=== PATIENT | male | born 1990 | race Caucasian/White ===

== ENCOUNTER 2017-08-16 14:35 | Emergency (ER) | payer OTHER ==
[2017-08-16 14:46] VITALS: BP 127/68; PULSE 59; TEMP 98.6; BMI 39.1
--- NOTE | 2017-08-16 15:14 | PDOC ---
History of Present Illness - General Chief Complaint: Rash Stated Complaint: RASH Time Seen by Provider: 08/16/17 14:54 History Source: Patient Exam Limitations: No Limitations - History of Present Illness Initial Comments: 08/16/17 15:19 Patient came for second opinion about rash to his neck. went to the [facility] 3[facility]4 days ago where they used a razor, [facility] nicked him and since that time has had this rash to his neck. Denies fever, denies any purulent drainage, states his itching not painful. was seen by his PMD 3 days ago who considered rash to be the appearance of a tinea infection and prescribed ketoconazole cream for that area. Has used twice a day as instructed but states the area surrounding the lesion has become erythematous and very very itchy. Is uncertain but thinks may have a reaction to the cream. Patient has multiple environmental ALLERGIES and food ALLERGIES. Timing/Duration: reports: other (3 days ), getting worse Severity: Yes: mild Location: reports: face (neck) Modifying Factors: improves with: scratching Associated Symptoms: reports: flushing, rash Past History - Travel Traveled outside of the country in the last 30 days: No Close contact w/someone who was outside of country & ill: No - Past Medical History Allergies/Adverse Reactions: Allergies Allergy/AdvReac Type Severity Reaction Status Date / Time peanut Allergy Verified 08/16/17 14:42 shellfish derived Allergy Verified 08/16/17 14:42 Home Medications: Ambulatory Orders Omeprazole [Prilosec (RX)] 40 mg PO DAILY 06/15/13 Fluconazole 150 mg PO ONCE #1 tablet 08/16/17 COPD: No GI Disorders: Yes (ACID REFLUX) - Suicide/Smoking/Psychosocial Hx Smoking History: Never smoked Number of Cigarettes Smoked Daily: 0 Hx Alcohol Use: No Review of Systems - Review of Systems Able to Perform ROS?: Yes Is the patient limited Guatemalan proficient: Yes Constitutional: Yes: Symptoms Reported, See HPI. No: Chills, Fever HEENTM: Yes: See HPI. No: Symptoms Reported, Nose Congestion, Throat Swelling Respiratory: Yes: See HPI. No: Symptoms reported, Cough, Wheezing Musculoskeletal: No: Symptoms Reported Integumentary: Yes: Symptoms Reported, See HPI, Pruritus (to area ~ 4cm2 to neck ), Rash *Physical Exam - Vital Signs Last Vital Signs Temp Pulse Resp BP Pulse Ox 98.6 F 59 L 17 127/68 96 08/16/17 14:43 08/16/17 14:43 08/16/17 14:43 08/16/17 14:43 08/16/17 14:43 - Physical Exam General Appearance: Yes: Appropriately Dressed HEENT: positive: HEENA, Normal ENT Inspection, TMs Normal, Pharynx Normal Neck: positive: Supple. negative: Tender Respiratory/Chest: positive: Lungs Clear, Normal Breath Sounds Extremity: positive: Normal Capillary Refill, Normal Range of Motion Integumentary: positive: Dry, Warm, Rash (Central lesion that's pale proximally 1 cm with circumferential erythematous and pruritic lesion that approximate 6 cm without vesicles, hives, wheals, or other raised lesions. Has some excoriation from pruritic nature. 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 We'll treat with one dose of Diflucan, and encourage patient to avoid itching and no other creams or lotions. If not resolved or appears worsened and cellulitic in nature instructed to return to this emergency Department for a change to treatment for bacterial infection/ cellulitis. *DC/Admit/Observation/Transfer Diagnosis at time of Disposition: Tinea barbae - Discharge Dispostion Disposition: HOME Condition at time of disposition: Stable Admit: No - Prescriptions Prescriptions: Fluconazole 150 mg PO ONCE #1 tablet - Referrals Referrals: ON STAFF,NOT [Primary Care Provider] - - Patient Instructions Printed Discharge Instructions: DI for Tinea Barbae Additional Instructions: Rest, keep cool and dry- avoid strenuous activity or hot /humid environments Less hot showers, no abrasive soaps May use heavy creams like Eucerin or Cetaphil to keep skin moist May apply Aveeno, calamine lotion, [id number] hydrocortisone creams as needed for symptoms May use Benadryl at night for antihistamine, Zyrtec/ Ida or Claritin for daytime antihistamine use to help with itching May use [id number] tinea / fungal cream on all areas except face Try to identify cause for rash and avoid exposures 1 tablet of Diflucan fopr tinea treatment Followup with PMD in one week if no resolution Make appointment with [facility] for evaluation when possible - Post Discharge Activity
== END 2017-08-16 15:24 | disposition home or self-care (01) ==
LOC: JERFT 14:35
DX: B35.0 Tinea barbae and tinea capitis (principal)
CPT/HCPCS: 99281-25

== ENCOUNTER 2018-04-21 14:23 | Emergency (ER) | payer OTHER ==
[2018-04-21] MEDS ORDERED: SODIUM CHLORIDE 1,000 ML IV STA (14:43)
[2018-04-21] MEDS ORDERED: ONDANSETRON *ODT* 4 MG TABLET SL ONE (14:43)
[2018-04-21 14:45] VITALS: BP 106/87; PULSE 77; TEMP 98; BMI 40.0
--- NOTE | 2018-04-21 14:45 | PDOC ---
Rapid Medical Evaluation Chief Complaint: Vomiting/Diarrhea Time Seen by Provider: 04/21/18 14:44 Medical Evaluation: Allergies Allergy/AdvReac Type Severity Reaction Status Date / Time peanut Allergy Verified 08/16/17 14:42 shellfish derived Allergy Verified 08/16/17 14:42 04/21/18 14:44 I have performed a brief in-person evaluation of this patient. The patient presents with a chief complaint of: nausea, vomiting and diarrhea s/ p eating left over food yesterday from a [facility] 2 days ago Pertinent physical exam findings: A&O x 3. mp acute distress I have ordered the following: CBC,CMP, zofran, IV FLUID The patient will proceed to the ED for further evaluation Discharge Disposition - Diagnosis Diarrhea Qualifiers: Diarrhea type: unspecified type Qualified Code(s): R19.7 - Diarrhea, unspecified - Discharge Dispostion Condition at time of disposition: Stable - Referrals - Patient Instructions - Post Discharge Activity
[2018-04-21] MEDS ORDERED: ONDANSETRON *ODT* 4 MG TABLET ONE (14:49)
--- NOTE | 2018-04-21 15:12 | PDOC ---
History of Present Illness - General Chief Complaint: Vomiting/Diarrhea Stated Complaint: Vomiting/Diarrhea Time Seen by Provider: 04/21/18 14:44 - History of Present Illness Initial Comments: 04/21/18 15:05 Mr. Giron is a 27 yo male w/ pmh of Eosinophilic Esophagitis who presents for evaluation of 1 day history of N/V. Patient is accompanied by who has had similar symptoms plus fever for 2-3 days. Patient reports his symptoms started today and that he has had 5+ episodes of both vomiting and diarrhea. Patient further reports he had some midline abdominal pain with his vomiting that resolved before presentation. The patient denies chest pain, shortness of breath, headache and dizziness. Denies fever, chills, and constipation. Denies dysuria, frequency, urgency and hematuria. Past History - Past Medical History Allergies/Adverse Reactions: Allergies Allergy/AdvReac Type Severity Reaction Status Date / Time peanut Allergy Verified 08/16/17 14:42 shellfish derived Allergy Verified 08/16/17 14:42 Home Medications: Ambulatory Orders Omeprazole [Prilosec (RX)] 40 mg PO DAILY 06/15/13 Fluconazole 150 mg PO ONCE #1 tablet 08/16/17 Ondansetron [Zofran Odt -] 4 mg SL TID PRN #15 od.tablet 04/21/18 COPD: No GI Disorders: Yes (ACID REFLUX) Other medical history: EOSINAPHIL ESOPHAGITIS - Immunization History Immunization Up to Date: No - Suicide/Smoking/Psychosocial Hx Smoking History: Never smoked Have you smoked in the past 12 months: No Number of Cigarettes Smoked Daily: 0 Hx Alcohol Use: No Drug/Substance Use Hx: No Review of Systems - Review of Systems Comments:: 04/21/18 15:17 GENERAL/CONSTITUTIONAL: No fever or chills. No weakness. HEAD, EYES, EARS, NOSE AND THROAT: No change in vision. No ear pain or discharge. No sore throat. CARDIOVASCULAR: No chest pain or shortness of breath RESPIRATORY: No cough, wheezing, or hemoptysis. GASTROINTESTINAL: +N/V/D as described. No constipation. GENITOURINARY: No dysuria, frequency, or change in urination. MUSCULOSKELETAL: No joint or muscle swelling or pain. No neck or back pain. SKIN: No rash NEUROLOGIC: No headache, vertigo, loss of consciousness, or change in strength/ sensation. ENDOCRINE: No increased thirst. No abnormal weight change HEMATOLOGIC/LYMPHATIC: No anemia, easy bleeding, or history of blood clots. ALLERGIC/IMMUNOLOGIC: No hives or skin allergy. *Physical Exam - Vital Signs Last Vital Signs Temp Pulse Resp BP Pulse Ox 98.0 F 77 18 106/87 100 04/21/18 14:43 04/21/18 14:43 04/21/18 14:43 04/21/18 14:43 04/21/18 14:43 - Physical Exam Comments: 04/21/18 15:17 GENERAL: Awake, alert, and fully oriented, in no acute distress HEAD: No signs of trauma, normocephalic, atraumatic EYES: PERRLA, EOMI, sclera anicteric, conjunctiva clear ENT: Auricles normal inspection, hearing grossly normal, nares patent, oropharynx clear without exudates. Moist mucosa NECK: Normal ROM, supple, no lymphadenopathy, JVD, or masses LUNGS: No distress, speaks full sentences, clear to auscultation bilaterally HEART: Regular rate and rhythm, normal S1 and S2, no murmurs, rubs or gallops, peripheral pulses normal and equal bilaterally. ABDOMEN: Soft, nontender, normoactive bowel sounds. No guarding, no rebound. No masses EXTREMITIES: Normal inspection, Normal range of motion, no edema. No clubbing or cyanosis. NEUROLOGICAL: Cranial nerves II through XII grossly intact. Normal speech, normal gait, no focal sensorimotor deficits SKIN: Warm, Dry, normal turgor, no rashes or lesions noted. Moderate Sedation - Procedure Monitoring Vital Signs: Procedure Monitoring Vital Signs Temperature 98.0 F 04/21/18 14:43 Pulse Rate 77 04/21/18 14:43 Respiratory Rate 18 04/21/18 14:43 Blood Pressure 106/87 04/21/18 14:43 O2 Sat by Pulse Oximetry (%) 100 04/21/18 14:43 ED Treatment Course - LABORATORY CBC & Chemistry Diagram: 04/21/18 15:01 04/21/18 15:19 - Medications Given in the ED: ED Medications Discontinued Medications Generic Name Dose Route Start Last Admin Trade Name Freq PRN Reason Stop Dose Admin Ondansetron HCl 4 mg 04/21/18 14:43 04/21/18 14:53 Zofran Odt - SL 04/21/18 14:44 4 mg ONCE ONE Administration Medical Decision Making - Medical Decision Making 04/21/18 16:42 Mr. Giron is a 27 yo male w/ pmh as described who presents for evaluation of symptoms c/w viral illness. No concerning findings at this time. Patient reporting relief from symptoms w/ fluids and zofran/pepcid. Discharging to home w/ zofran for symptomatic relief. Laboratory Results - last 24 hr 04/21/18 04/21/18 15:01 15:19 WBC 12.5 H RBC 5.17 Hgb 15.6 Hct 44.5 MCV 85.9 MCH 30.1 MCHC 35.0 RDW 12.5 Plt Count 290 MPV 9.2 Absolute Neuts (auto) 10.6 H Neutrophils % 85.2 H D Lymphocytes % 9.0 D Monocytes % 4.7 Eosinophils % 1.0 D Basophils % 0.1 Nucleated RBC % 0 Sodium 140 Potassium 3.9 Chloride 107 Carbon Dioxide 23 Anion Gap 10 BUN 12 Creatinine 0.8 Creat Clearance w eGFR > 60 Random Glucose 83 Calcium 8.3 L Total Bilirubin 0.8 AST 21 ALT 27 Alkaline Phosphatase 89 Total Protein 7.4 Albumin 4.0 *DC/Admit/Observation/Transfer Diagnosis at time of Disposition: Diarrhea Qualifiers: Diarrhea type: unspecified type Qualified Code(s): R19.7 - Diarrhea, unspecified - Discharge Dispostion Disposition: HOME Condition at time of disposition: Stable - Referrals - Patient Instructions Printed Discharge Instructions: DI for Diarrhea and Traveler's Diarrhea -- Adult, DI for Vomiting -- Adult Additional Instructions: You were evaluated today in the ER for your vomiting and diarrhea. No concerning findings were found at this time. A prescription was sent to your ER for anti-nausea medication. Take all medications as proscribed. Follow-up with primary care provider later this week for further evaluation. Return to ER if any fever, chills, pain, or other concerning symptoms. - Post Discharge Activity
[2018-04-21] MEDS ORDERED: FAMOTIDINE 20 MG/50 ML IVPB 20 MG/50 ML MG IVPB ONE ×2 (15:15→15:38)
--- NOTE | 2018-04-21 15:48 | PDOC ---
Attending Attestation - Resident Resident Name: Pedrito Che - ED Attending Attestation I have performed the following: I have examined & evaluated the patient, The case was reviewed & discussed with the resident, I agree w/resident's findings & plan - HPI HPI: 04/21/18 15:47 Healthy 27-year-old male with no severe past medical history presents with onset today of nausea/vomiting/diarrhea/epigastric burning, no fevers or chills. is also a patient here with same illness for 2 days, they ate some restaurant food couple of nights ago, otherwise no recent travel or antibiotics or known sick contacts. Patient has no history of recurring GI illnesses. - Physicial Exam PE: 04/21/18 15:47 Vital signs normal Well-appearing and ambulating No jaundice or pallor Moist mucosa Abdomen is soft/nontender/nondistended, slight epigastric discomfort without guarding or rebound. - Medical Decision Making 04/21/18 15:48 27-year-old male with likely gastroenteritis-type illness, seems more viral than food/toxin mediated. No peritoneal findings on examination, vital signs are normal. Labs IV fluids, antacid, antiemetics Reassess, disposition accordingly
[2018-04-21 15:52] LABS: BASO % 0.1 % (0-2.0); HEMATOCRIT 44.5 % (35.4-49); HEMOGLOBIN 15.6 GM/dL (11.7-16.9); MCH 30.1 pg (25.7-33.7); MEAN CELL VOLUME 85.9 fl (80-96); MEAN PLT VOLUME 9.2 fl (7.5-11.1); MONO % 4.7 % (3.8-10.2); NEUT % 85.2 % (42.8-82.8); PLATELET COUNT 290 K/MM3 (134-434); RBC 5.17 M/mm3 (4.00-5.60); RDW 12.5 % (11.9-15.9); WHITE BLOOD COUNT 12.5 K/mm3 (4.0-10.0)
[2018-04-21 16:30] LABS: ALK PHOS 89 U/L (45-117); ANION GAP 10 MMOL/L (8-16); BILIRUBIN,TOTAL 0.8 mg/dL (0.2-1); BLOOD UREA NITROGEN 12 mg/dL (7-18); CALCIUM 8.3 mg/dL (8.5-10.1); CHLORIDE 107 mmol/L (98-107); CO2 23 mmol/L (21-32); CREATININE 0.8 mg/dL (0.55-1.3); GLUCOSE,RANDOM 83 mg/dL (74-106); POTASSIUM 3.9 mmol/L (3.5-5.1); SGOT/AST 21 U/L (15-37); SGPT/ALT 27 U/L (13-61); SODIUM 140 mmol/L (136-145); TOT PROT 7.4 g/dl (6.4-8.2)
== END 2018-04-21 17:42 | disposition home or self-care (01) ==
LOC: JER 14:23
PROC: 3E033GC Introduction of Other Therapeutic Substance into Peripheral Vein, Percutaneous Approach (ICD-10-PCS; principal; 2018-04-21)
PROC: 3E0337Z Introduction of Electrolytic and Water Balance Substance into Peripheral Vein, Percutaneous Approach (ICD-10-PCS; 2018-04-21)
DX: R19.7 Diarrhea, unspecified (principal)
CPT/HCPCS: 36415; 80053; 85025; 99283-25; J7030; Q0162

== ENCOUNTER 2018-06-01 03:16 | Emergency (ER) | payer OTHER ==
[2018-06-01 03:32] VITALS: BP 124/73; PULSE 57; TEMP 98.8; BMI 39.4
--- NOTE | 2018-06-01 06:08 | PDOC ---
History of Present Illness - General Chief Complaint: Laceration Stated Complaint: L HAND LAC Time Seen by Provider: 06/01/18 05:43 History Source: Patient Exam Limitations: No Limitations - History of Present Illness Initial Comments: 06/01/18 06:03 Patient is a 27 year male with h/o is seen like esophagitis, deviated septum repair, and plating of laceration to the left palm 1 day. Patient states that he was closing the window in his basement yesterday when his hand went through a window and had a shard of glass went in hand. States that he washed the wound and took the shard out. However tonight while at work about 10:00pm had some tingling in the hand and fingers that radiated up his arm. He got concerned and so came to the emergency room for evaluation. Tetanus is UTD. PMD: Dr. Joseph PMHX: as above SOCHx: neg etoh, drug, cig ALL: NKDA GENERAL/CONSTITUTIONAL: [No fever or chills. No weakness. No weight change.] HEAD, EYES, EARS, NOSE AND THROAT: [No change in vision. No ear pain or discharge. No sore throat.] CARDIOVASCULAR: [No chest pain or shortness of breath.] RESPIRATORY: [No cough, wheezing, or hemoptysis.] GASTROINTESTINAL: [No nausea, vomiting, diarrhea or constipation. No rectal bleeding.] GENITOURINARY: [No dysuria, frequency, or change in urination.] MUSCULOSKELETAL: [No joint or muscle swelling or pain. No neck or back pain.] SKIN AND BREASTS: [No rash or easy bruising.] NEUROLOGIC: [No headache, vertigo, loss of consciousness, or loss of sensation.] PSYCHIATRIC: [No depression or anxiety.] ENDOCRINE: [No increased thirst. No abnormal weight change.] HEMATOLOGIC/LYMPHATIC: [No anemia, easy bleeding, or history of blood clots.] ALLERGIC/IMMUNOLOGIC: [No hives or skin allergy. No latex allergy.] GENERAL: HEAD: [Normal with no signs of trauma.] EYES: [Pupils equal, round and reactive to light, extraocular movements intact, sclera anicteric, conjunctiva clear.] ENT: [Ears normal, nares patent, oropharynx clear without exudates. Moist mucous membranes.] NECK: [Normal range of motion, supple without lymphadenopathy, JVD, or masses.] LUNGS: [Breath sounds equal, clear to auscultation bilaterally. No wheezes, and no crackles.] HEART: [Regular rate and rhythm, normal S1 and S2 without murmur, rub.] ABDOMEN: [Soft, nontender, normoactive bowel sounds. No guarding, no rebound. No masses.] EXTREMITIES: [Normal range of motion, no edema. No clubbing or cyanosis. No cords, erythema, or tenderness.] NEUROLOGICAL: [Cranial nerves II through XII grossly intact. Normal speech, normal gait.] PSYCH: [Normal mood, normal affect.] SKIN: 1.5cm laceration to over distal 1/3 of the 3rd MC, or Warm, Dry, (-) eythema, normal turgor, no rashes or lesions noted.] Past History - Past Medical History Allergies/Adverse Reactions: Allergies Allergy/AdvReac Type Severity Reaction Status Date / Time No Known Drug Allergies Allergy Verified 06/01/18 04:17 peanut Allergy Verified 06/01/18 04:17 shellfish derived Allergy Verified 06/01/18 04:17 Home Medications: Ambulatory Orders Clindamycin [Cleocin -] 300 mg PO Q6HPO #28 capsule 06/01/18 COPD: No GI Disorders: Yes (ACID REFLUX) - Immunization History Immunization Up to Date: No - Suicide/Smoking/Psychosocial Hx Smoking History: Never smoked Have you smoked in the past 12 months: No Number of Cigarettes Smoked Daily: 0 Information on smoking cessation initiated: No Hx Alcohol Use: No Drug/Substance Use Hx: No *Physical Exam - Vital Signs Last Vital Signs Temp Pulse Resp BP Pulse Ox 98.8 F 57 L 20 124/73 99 06/01/18 03:28 06/01/18 03:28 06/01/18 03:28 06/01/18 03:28 06/01/18 03:28 Moderate Sedation - Procedure Monitoring Vital Signs: Procedure Monitoring Vital Signs Temperature 98.8 F 06/01/18 03:28 Pulse Rate 57 L 06/01/18 03:28 Respiratory Rate 20 06/01/18 03:28 Blood Pressure 124/73 06/01/18 03:28 O2 Sat by Pulse Oximetry (%) 99 06/01/18 03:28 ED Treatment Course - RADIOLOGY Radiology Studies Ordered: Category Date Time Status HAND- LEFT [RAD] Stat Radiology 06/01/18 05:55 Ordered Medical Decision Making - Medical Decision Making 06/01/18 06:03 Patient is a 27 year male with h/o is seen like esophagitis, deviated septum repair, and plating of laceration to the left palm 1 day. Patient states that he was closing the window in his basement yesterday when his hand went through a window and had a shard of glass went in hand. States that he washed the wound and took the shard out. However tonight while at work about 10:00pm had some tingling in the hand and fingers that radiated up his arm. He got concerned and so came to the emergency room for evaluation. Tetanus is UTD. Symptoms consistent with puncture wound Hand xray not FB noted will treat with clindamycin I discussed the physical exam findings, ancillary test results and final diagnoses with the patient. I answered all of the patient's questions. The patient was satisfied with the care received and felt comfortable with the discharge plan and treatment plan. The Patient agrees to follow up with the primary care physician within 24-72 hours. *DC/Admit/Observation/Transfer Diagnosis at time of Disposition: Puncture wound Laceration of hand Qualifiers: Encounter type: initial encounter Foreign body presence: without foreign body Laterality: left Qualified Code(s): S61.412A - Laceration without foreign body of left hand, initial encounter - Discharge Dispostion Disposition: HOME Condition at time of disposition: Stable - Referrals Referrals: Dar Li MD [Staff Physician] - - Patient Instructions Printed Discharge Instructions: DI for Puncture Wound - Post Discharge Activity Forms/Work/School Notes: Back to Work
[2018-06-01] MEDS ORDERED: CLINDAMYCIN HCL 300 MG CAPSULE PO ONE (06:37)
[2018-06-01] MEDS ORDERED: CLINDAMYCIN HCL 150 MG CAPSULE (FP) ONE (06:40)
== END 2018-06-01 07:24 | disposition home or self-care (01) ==
LOC: JER 03:16
DX: S61.432A Puncture wound without foreign body of left hand, initial encounter (principal); S61.412A Laceration without foreign body of left hand, initial encounter; W25.XXXA Contact with sharp glass, initial encounter; Y93.89 Activity, other specified; Y92.018 Other place in single-family (private) house as the place of occurrence of the external cause; Y99.8 Other external cause status
CPT/HCPCS: 73130-TC-LT-FY; 99281-25

== ENCOUNTER 2018-08-20 12:34 | Day surgery (SDC) | payer OTHER ==
[2018-08-19 14:23] VITALS: BMI 39.8
--- NOTE | 2018-08-20 14:21 | HP ---
History & Physical Update - History History: No Change - Physical Physical: No Change - Assessment Assessment: No Change - Plan Plan: No Change
[2018-08-20] MEDS ORDERED: ACETAMINOPHEN 1000 MG/100 ML VIAL (NON FORMULARY) IVPB ONE (14:22)
[2018-08-20] MEDS ORDERED: DEXTROSE 5%-0.45% SALINE 1,000 ML IV SCH (14:30)
[2018-08-20] MEDS ORDERED: IBUPROFEN 800 MG/8 ML IJ IVPB SCH (14:30)
[2018-08-20] MEDS ORDERED: MIDAZOLAM HCL 2 MG/2 ML SINGLE DOSE VIAL ONE (14:49)
[2018-08-20] MEDS ORDERED: ONDANSETRON 4 MG/2 ML VIAL ONE (14:57)
[2018-08-20] MEDS ORDERED: DEXAMETHASONE SOD PHOSPHATE 4 MG/1 ML VIAL ONE (14:57)
[2018-08-20] MEDS ORDERED: PROPOFOL 20 ML ONE ×2 (15:00)
[2018-08-20] MEDS ORDERED: LIDOCAINE HCL/PF 2% SDV 5ML VIAL ONE (15:01)
[2018-08-20] MEDS ORDERED: SUCCINYLCHOLINE CHLORIDE 200 MG/10 ML VIAL ONE (15:02)
[2018-08-20] MEDS ORDERED: ceFAZolin SODIUM 1 GM VIAL IVPB ONE (15:09)
[2018-08-20] MEDS ORDERED: ceFAZolin SODIUM 1 GM VIAL ONE (15:09)
[2018-08-20] MEDS ORDERED: LIDOCAINE HCL 1%, 10 MG/ML (20ML VIAL) ONE (15:15)
[2018-08-20] MEDS ORDERED: LIDOCAINE HCL 1%, 10 MG/ML (50 mL VIAL) IJ ONE (15:17)
[2018-08-20] MEDS ORDERED: BACITRACIN 15 GM TUBE TOPICAL OINTMENT TP ONE (15:30)
[2018-08-20] MEDS ORDERED: oxyCODONE HCL 5 MG TABLET PO PRN (15:49)
[2018-08-20] MEDS ORDERED: ONDANSETRON 4 MG/2 ML VIAL IVPUSH PRN (15:49)
[2018-08-20] MEDS ORDERED: LACTATED RINGERS SOLUTION 1,000 ML IV SCH (16:00)
[2018-08-20] MEDS ORDERED: ACETAMINOPHEN INJECTION 100 ML IVPB ONE (16:09)
[2018-08-20 16:56] VITALS: TEMP 97.8
[2018-08-20 17:54] VITALS: BP 124/64; PULSE 59
--- NOTE | 2018-08-20 21:00 | OP ---
DATE OF OPERATION: 08/20/2018 PREOPERATIVE DIAGNOSES: Desire for sterilization and penile condyloma. POSTOPERATIVE DIAGNOSES: Desire for sterilization and penile condyloma. PROCEDURE: Bilateral vasectomy and CO2 laser fulguration of penile condyloma. SURGEON: Marc Martinez MD ESTIMATED BLOOD LOSS: None. SPECIMENS: Portion of right and left vas deferens. PREOPERATIVE INDICATIONS: The patient is a 28-year-old male who comes in for a vasectomy as well as for laser fulguration of penile condyloma. OPERATION: The patient was brought to the OR, placed on the table in supine position, given general anesthesia and IV antibiotics. The groin was shaved, prepped, and draped sterilely. Bilateral vasectomy was performed using no-scalpel technique. local anesthesia was given to the skin, and the vas deferens was palpated through the skin. A ring clamp was used to isolate the vas deferens, and a sharpened, pointed mosquito clamp was used to guerin the skin. The vas deferens was pulled out of the skin. Portion was excised. The free ends were fulgurated and oversewn with 3-0 Vicryl. Good hemostasis was maintained. On the opposite side, the same thing was done. The ring clamp was used to isolate the vas. A sharpened, pointed mosquito was used to guerin the skin. The vas deferens was identified. A portion was removed. The free ends were fulgurated and oversewn. Using the CO2 laser, area just below the burgess was fulgurated using CO2 laser. Patient tolerated the procedure well. He was then woken up. Magy [id number]
--- NOTE | 2018-08-24 18:53 | PATH ---
Surgical Pathology Report Patient Name: CHRISTIAN PETERS Med. Rec. #: [id number] /Age/Gender: 1990 (Age: 28) / M Account: [id number] Location: [facility] Taken: 08/20/2018 Received: 08/21/2018 Reported: 08/24/2018 Physicians: Marc Martinez M.D. Specimen(s) Received A: VAS DEFERENS, RIGHT B: VAS DEFERENS, LEFT Clinical History Condyloma Final Diagnosis A. VAS DEFERENS, RIGHT, VASECTOMY: FULL LUMINAL PORTION OF UNREMARKABLE VAS DEFERENS. B. VAS DEFERENS, LEFT, VASECTOMY: FULL LUMINAL PORTION OF UNREMARKABLE VAS DEFERENS. Electronically Signed Rosalie Lucia M.D. Gross Description A. Received in formalin labeled "right vas deferens," is a 0.6 cm in length tubular stricture, consistent with a portion of vas deferens. The specimen is bisected and entirely submitted in one cassette. B. Received in formalin labeled "left vas deferens," is a 0.6 cm in length tubular structure, consistent with a portion of vas deferens. The specimen is bisected and entirely submitted in one cassette. 08/22/2018 saudi08/22/2018
== END 2018-08-20 17:55 | disposition home or self-care (01) ==
LOC: JASU-SURG 12:34
PROVIDERS: ATTEND Urology
PROC: 0VTQ0ZZ Resection of Bilateral Vas Deferens, Open Approach (ICD-10-PCS; principal; 2018-08-20 14:00)
PROC: 0V5SXZZ Destruction of Penis, External Approach (ICD-10-PCS; 2018-08-20 14:00)
DX: Z30.2 Encounter for sterilization (principal); A63.0 Anogenital (venereal) warts
CPT/HCPCS: 88302-TC; 94760; J0131

== ENCOUNTER 2018-11-16 18:20 | Emergency (ER) | payer OTHER ==
--- NOTE | 2018-11-16 18:25 | PDOC ---
Rapid Medical Evaluation Chief Complaint: Edema Time Seen by Provider: 11/16/18 18:23 Medical Evaluation: Allergies Allergy/AdvReac Type Severity Reaction Status Date / Time No Known Drug Allergies Allergy Verified 08/20/18 13:09 peanut Allergy "anaphalatic Verified 08/20/18 13:09 shock" shellfish derived Allergy "hives" Verified 08/20/18 13:09 soy Allergy "minor Verified 08/20/18 13:09 allergy when allergy tested" 11/16/18 18:23 This patient had a brief in-person evaluation by me. cc: right testicle swelling, s/p vasectomy in July Denies painful sexual intercourse or blood in urine PE: NAD unlabored breathing non tender abdomen Orders: none This patient will proceed to Ed for further evaluation Discharge Disposition - Diagnosis Testicle swelling - Referrals - Patient Instructions - Post Discharge Activity
[2018-11-16 18:27] VITALS: BP 143/77; PULSE 59; TEMP 98.2; BMI 39.8
--- NOTE | 2018-11-16 21:39 | PDOC ---
History of Present Illness - General Chief Complaint: Edema Stated Complaint: SWELLING TESTICLES Time Seen by Provider: 11/16/18 18:23 History Source: Patient Exam Limitations: No Limitations - History of Present Illness Initial Comments: Pt is a 28 yo M, with PMH of esophagitis, who is presenting with complaints of R sided scrotal swelling x1 week. Pt states he had a vasectomy done with Dr. Paul done in August 2018, with no recurrent issues. Starting 1 week ago , pt noted swelling to the R side of his scrotum, which has worsened throughout the week. Pt left a message for Dr. Paul today, but did not get a call back yet. Pt denies any fevers/chills, headache, vision changes, syncope, chest pain, palpitations, SOB, nausea/vomiting, abdominal pain, penile discharge or lesions, urinary symptoms, diarrhea/constipation, or leg swelling. Allergies: NKDA PCP: Dr. Levy Social: Pt denies any cigarette, alcohol, or drug use. Pt denies any recent travel or sick contacts. Surgical: see above. Family: no relevant history. 11/17/18 04:56 Past History - Travel Traveled outside of the country in the last 30 days: No Close contact w/someone who was outside of country & ill: No - Past Medical History Allergies/Adverse Reactions: Allergies Allergy/AdvReac Type Severity Reaction Status Date / Time No Known Drug Allergies Allergy Verified 11/16/18 18:26 peanut Allergy "anaphalatic Verified 11/16/18 18:26 shock" shellfish derived Allergy "hives" Verified 11/16/18 18:26 soy Allergy "minor Verified 11/16/18 18:26 allergy when allergy tested" Home Medications: Ambulatory Orders NK [No Known Home Medication] 08/19/18 Anemia: No Asthma: No Cancer: No Cardiac Disorders: No CVA: No COPD: No CHF: No Dementia: No Diabetes: No GI Disorders: Yes (esonophilic esophagatis) Disorders: No HTN: No Hypercholesterolemia: No Liver Disease: No Seizures: No Thyroid Disease: No - Immunization History Immunization Up to Date: No - Suicide/Smoking/Psychosocial Hx Smoking History: Never smoked Have you smoked in the past 12 months: No Number of Cigarettes Smoked Daily: 0 Information on smoking cessation initiated: No Hx Alcohol Use: No Drug/Substance Use Hx: No Substance Use Type: None Hx Substance Use Treatment: No Review of Systems - Review of Systems Able to Perform ROS?: Yes Is the patient limited [place] proficient: No Constitutional: Yes: Weight Stable. No: Chills, Diaphoresis, Fever, Loss of Appetite, Malaise, Weakness HEENTM: No: Blurred Vision, Double Vision, Nose Pain, Nose Congestion, Throat Pain, Throat Swelling, Difficulty Swallowing Respiratory: No: Cough, Orthopnea, Shortness of Breath Cardiac (ROS): No: Chest Pain, Edema, Irregular Heart Rate, Lightheadedness, Palpitations, Syncope, Chest Tightness ABD/GI: No: Abdominal Distended, Constipated, Diarrhea, Nausea, Poor Appetite, Poor Fluid Intake, Vomiting, Abdominal cramping : Yes: Testicular Swelling. No: Burning, Dysuria, Discharge, Flank Pain, Hematuria, Pain, Urgency, Testicular Mass, Testicular Pain Musculoskeletal: No: Back Pain, Joint Pain, Muscle Pain, Muscle Weakness Integumentary: No: Rash Neurological: No: Headache, Numbness, Weakness, Dizziness Psychiatric: No: Sleep Pattern Change, Change in Appetite Endocrine: No: Increased Urine, Change in Weight Hematologic/Lymphatic: No: Anemia, Blood Clots, Easy Bleeding, Easy Bruising All Other Systems: Reviewed and Negative *Physical Exam - Vital Signs Last Vital Signs Temp Pulse Resp BP Pulse Ox 98.2 F 59 L 18 143/77 99 11/16/18 18:23 11/16/18 18:23 11/16/18 18:23 11/16/18 18:23 11/16/18 18:23 - Physical Exam Comments: Vitals stable, pt afebrile. Pt in NAD, obese body habitus. Pt alert and oriented x3. hereditary cancer program coordinator generally intact, muscular strength and sensation intact. No midline spinal tenderness, step-offs, or crepitus. Head normocephalic, atraumatic. Eyes PERRLA, EOMI. Oropharynx without erythema or exudates, no LAD b/l. No nasal congestion, hearing intact. Clear heart sounds, S1/S2, no JVD, b/l pedal edema, or heart murmur. Clear lung sounds, no respiratory distress, wheezes, crackles, or accessory muscle use. No abdominal or CVA tenderness to palpation, no rebound, no guarding. Abdomen soft, non-distended, and with normoactive bowel sounds. R-sided scrotal swelling, "bag of worms" texture to R side of scrotum. No inguinal hernia noted. No surrounding erythema or TTP of the scrotum or medial thighs. Skin without jaundice or rash. 11/17/18 04:51 Medical Decision Making - Medical Decision Making Pt was seen at bedside, also will be seen by attending Dr. Tran. Pt presenting with complaints of R sided scrotal swelling x1 week. Pt states he had a vasectomy done with Dr. Paul done in August 2018, with no recurrent issues. Starting 1 week ago, pt noted swelling to the R side of his scrotum, which has worsened throughout the week. Pt left a message for Dr. Paul today, but did not get a call back yet. Pt denies any fevers/ chills, headache, vision changes, syncope, chest pain, palpitations, SOB, nausea /vomiting, abdominal pain, penile discharge or lesions, urinary symptoms, diarrhea/constipation, or leg swelling. Considering hernia vs testicular mass/varicocele/hydrocele vs epididymitis Ordered work-up including testicular/scrotul US. Provided 650 mg PO tylenol for improvement of pts discomfort. Will continue to reassess pt and monitor for symptomatic improvement. 11/17/18 04:52 Scrotal US showed mild b/l hydroceles, with no evidence of hernia or torsion. Pt can be discharged to home with follow-up. Pt advised to follow-up with urology tomorrow to discuss his symptoms. Strict return precautions provided with pt understanding. 11/17/18 04:55 *DC/Admit/Observation/Transfer Diagnosis at time of Disposition: Scrotal swelling - Discharge Dispostion Disposition: HOME Condition at time of disposition: Good Decision to Admit order: No - Referrals Referrals: ON STAFF,NOT [Primary Care Provider] - Marc Martinez MD [Staff Physician] - - Patient Instructions Printed Discharge Instructions: DI for Testicular Pain Additional Instructions: You were seen in the ER today for swelling in your scrotum. The results of your imaging today showed no torsion of your testicles, but they did note small hydroceles, which are small fluid collections. Please follow-up with your primary care doctor and Dr. Martinez tomorrow to discuss your visit and make sure your symptoms have improved. Please return to the ER if you have any worsening pain or swelling, discoloration to your scrotum, development of fevers or chills, loss of consciousness, inability to tolerate food or fluids, or any other concerns. - Post Discharge Activity
[2018-11-16] MEDS ORDERED: ACETAMINOPHEN 325 MG TABLET (FP) PO ONE (21:44)
[2018-11-16] MEDS ORDERED: ACETAMINOPHEN 325 MG TABLET (FP) ONE (21:57)
--- NOTE | 2018-11-18 03:55 | PDOC ---
Documentation entered by Phuong Bermudez SCRIBE, acting as scribe for Lizbet Tran MD. Lizbet Tran MD: This documentation has been prepared by the Lara tapia Sammi, SCRIBE, under my direction and personally reviewed by me in its entirety. I confirm that the documentation accurately reflects all work, treatment, procedures, and medical decision making performed by me. Attending Attestation - Resident Resident Name: Cayla Herrera - ED Attending Attestation I have performed the following: I have examined & evaluated the patient, The case was reviewed & discussed with the resident, I agree w/resident's findings & plan, Exceptions are as noted - HPI HPI: 11/16/18 21:36 The patient is a 28 year old male, with a significant PMH of a vasectomy (~3 months ago), who presents to the emergency department for evaluation of worsening pain and edema to the right testicle for about 1 week. Denies fever, chills, nausea, and vomiting. Denies hematuria. - Physicial Exam PE: 11/18/18 03:52 wnwd 28 yo male head ncat neck suple lungs cta b/l cvs [id number] abd nontender mild rt scrotal swelling,no erythema,no masses skin warm and dry neuro axox3,ambulatory - Medical Decision Making 11/18/18 03:53 ultrasound of scrotum and testes shows mild bilateral hydroceles, no hernia, no masses Patient was referred to his urologist Dr Lubin
== END 2018-11-16 22:14 | disposition home or self-care (01) ==
LOC: JER 18:20
DX: N43.2 Other hydrocele (principal); Z98.890 Other specified postprocedural states
CPT/HCPCS: 76870-TC; 99281-25